=== PATIENT | male | born 1980 ===

== ENCOUNTER 2018-08-06 04:58 | Emergency (ER) | payer SELFPAY ==
[2018-08-06 05:06] VITALS: BP 132/71; PULSE 67; RESP 16; TEMP 98.1; O2SAT 100
[2018-08-06] MEDS ORDERED: Alum-Mag Hydrox-Simethicone Susp (30 mL) PO ONE (05:43)
[2018-08-06] MEDS ORDERED: Alum-Mag Hydrox-Simethicone Susp (30 mL) ONE (05:50)
--- NOTE | 2018-08-06 05:51 | ED PDOC ---
HPI: Abdomen Time Seen by Provider: 08/06/18 05:08 Chief Complaint (Nursing): Abdominal Pain Chief Complaint (Provider): Abdominal Pain History Per: Patient History/Exam Limitations: no limitations Onset/Duration Of Symptoms: Hrs (x6) Location Of Pain/Discomfort: Epigastric Quality Of Discomfort: Sharp Associated Symptoms: denies: Nausea, Vomiting, Urinary Symptoms Additional Complaint(s): 38 years old male with no significant pmhx presents to ER for evaluation of sharp epigastric pain radiating to back onset 6 hours ago. Patient states he drank tea at home to help with the pain. He denies vomiting, nausea or urinary symptoms. PMD: non provided Past Medical History Reviewed: Historical Data, Nursing Documentation, Vital Signs Vital Signs: Last Vital Signs Temp 98.1 F 08/06/18 05:01 Pulse 67 08/06/18 05:01 Resp 16 08/06/18 05:01 BP 132/71 08/06/18 05:01 Pulse Ox 100 08/06/18 05:01 - Medical History PMH: No Chronic Diseases - Surgical History Surgical History: No Surg Hx - Family History Family History: States: Unknown Family Hx - Social History Current smoker - smoking cessation education provided: No Alcohol: Social Drugs: Denies - Allergies Allergies/Adverse Reactions: Allergies Allergy/AdvReac Type Severity Reaction Status Date / Time No Known Allergies Allergy Verified 08/06/18 05:06 Review of Systems ROS Statement: Except As Marked, All Systems Reviewed And Found Negative Gastrointestinal: Positive for: Abdominal Pain (epigastric). Negative for: Nausea, Vomiting, Melena, Hematochezia Physical Exam - Reviewed Nursing Documentation Reviewed: Yes Vital Signs Reviewed: Yes - Physical Exam Appears: Positive for: Non-toxic, No Acute Distress Head Exam: Positive for: ATRAUMATIC, NORMOCEPHALIC Skin: Positive for: Normal Color, Warm, Dry Eye Exam: Positive for: Normal appearance, EOMI, PERRL Neck: Positive for: Normal, Painless ROM, Supple Cardiovascular/Chest: Positive for: Regular Rate, Rhythm. Negative for: Murmur Respiratory: Positive for: Normal Breath Sounds. Negative for: Wheezing Gastrointestinal/Abdominal: Positive for: Tenderness (Epigastric). Negative for: Guarding, Rebound Back: Positive for: Normal Inspection. Negative for: L CVA Tenderness, R CVA Tenderness Extremity: Positive for: Normal ROM. Negative for: Pedal Edema, Deformity Neurologic/Psych: Positive for: Alert, Oriented (x3) - Laboratory Results Result Diagrams: 08/06/18 06:30 08/06/18 06:30 - ECG O2 Sat by Pulse Oximetry: 100 (RA) Pulse Ox Interpretation: Normal Medical Decision Making Medical Decision Making: Time: 542 A/P: 38 years old male presents with epigastric pain --Differential includes gastritis vs. GERD vs. gas, less likely pancreatitis --Labs --Lidocaine 2% Viscous 15 ml PO --Maaloz Plus 30 ml PO --Pepcid 20 mg PO --Reevaluation [address] Gates pending labs. Scribe Attestation: Documented by Patsy Dhillon, acting as a scribe for Jeison Slaughter MD. Provider Scribe Attestation: All medical record entries made by the Scribe were at my direction and personally dictated by me. I have reviewed the chart and agree that the record accurately reflects my personal performance of the history, physical exam, medical decision making, and the department course for this patient. I have also personally directed, reviewed, and agree with the discharge instructions and disposition. Disposition - Clinical Impression Clinical Impression: Abdominal pain - Disposition Disposition: Transfer of Care Disposition Time: 07:00 Condition: FAIR Forms: [employer] (Telugu) Patient Signed Over To: Hill Gates Handoff Comments: pending workup
[2018-08-06 06:51] LABS: BASO # 0.1 K/uL (0.0-0.2); BASO % 0.5 % (0.0-2.0); EOS % 0.2 % (0.0-4.0); HEMOGLOBIN 14.6 g/dL (12.0-18.0); LYMPH # 1.5 K/uL (1.0-4.3); LYMPH % 14.3 % (20.0-40.0); MEAN CELL VOLUME 91.7 fl (80.0-94.0); MEAN CORPUSCULAR HEMOGLOBIN 30.9 pg (27.0-31.0); MEAN CORPUSCULAR HGB CONC 33.7 g/dL (33.0-37.0); MEAN PLATELET VOLUME 8.7 fl (7.2-11.7); MONO # 0.3 K/uL (0.0-0.8); MONO % 2.9 % (0.0-10.0); NEUT # 8.4 K/uL (1.8-7.0); NEUT % 82.1 % (50.0-75.0); NRBC % 0.1 % (0.0-0.0); RBC 4.74 Mil/uL (4.40-5.90); RED CELL DISTRIBUTION WIDTH 13.1 % (11.5-14.5); WHITE BLOOD COUNT 10.2 K/uL (4.8-10.8)
[2018-08-06 06:56] LABS: ALB/GLOB RATIO 1.5 (1.0-2.1); ALBUMIN 5.1 g/dL (3.5-5.0); ALT/SGPT 31 U/L (21-72); AST/SGOT 33 U/L (17-59); BILIRUBIN,DIRECT 0.2 mg/ml (0.0-0.4); BLOOD UREA NITROGEN 19 mg/dl (9-20); CALCIUM 9.8 mg/dL (8.4-10.2); GFR NON-AFRICAN AMERICAN > 60; LIPASE 81 U/L (23-300)
[2018-08-06] MEDS ORDERED: Iohexol 240 (50 ml) PO ONE (07:01)
[2018-08-06] MEDS ORDERED: Sodium Chloride 0.9% 1,000 ML IV STA (07:01)
[2018-08-06] MEDS ORDERED: Morphine 4 MG/ML VIAL ONE (07:33)
[2018-08-06] MEDS ORDERED: Iohexol 240 (50 ml) ONE (07:34)
--- NOTE | 2018-08-06 07:36 | ED PDOC ---
- Laboratory Results Result Diagrams: 08/06/18 06:30 08/06/18 06:30 - ECG O2 Sat by Pulse Oximetry: 100 (RA) Medical Decision Making Medical Decision Makin Case endorsed to me by Dr. Slaughter pending labs. Scribe Attestation: Documented by Cedric Issa, acting as a scribe for Hill Gates MD. Provider Scribe Attestation: All medical record entries made by the Scribe were at my direction and personally dictated by me. I have reviewed the chart and agree that the record accurately reflects my personal performance of the history, physical exam, medical decision making, and the department course for this patient. I have also personally directed, reviewed, and agree with the discharge instructions and disposition. Disposition - Clinical Impression Clinical Impression: Abdominal pain - POA Present On Arrival: None - Disposition Disposition: Eloped Disposition Time: 10:33 Condition: FAIR Forms: [facility] (Serbian)
[2018-08-06] MEDS ORDERED: Iohexol 300 100 ML IJ ONE (09:19)
[2018-08-06] MEDS ORDERED: Sodium Chloride 0.9% 50 ML IV ONE (09:19)
== END 2018-08-06 09:00 | disposition left against medical advice (07) ==
LOC: H.ER 04:58
DX: R10.13 Epigastric pain (principal)
CPT/HCPCS: 80048; 80076; 83690; 85025; 96361; 96374; 96375; 99282; C9113; J2270; J2405; J2765; J7030; Q9966; Q9967